=== PATIENT | male | born 1970 | race African-American/Black ===

== ENCOUNTER 2022-01-14 03:20 | Emergency (ER) | payer BC, SELFPAY ==
[2022-01-14 03:22] VITALS: BP 138/90; PULSE 69; RESP 16; TEMP 36.7; O2SAT 97
--- NOTE | 2022-01-14 03:37 | ED.DENTAL ---
HPI - Dental/Oral General Chief complaint: Dental/Oral Stated complaint: dental pain Time Seen by Provider: 01/14/22 03:32 History of Present Illness HPI Narrative: 52-year-old male presents emergency room secondary to dental pain and some swelling to the left jaw. Been having problems with his left upper molar for several weeks. He is finally got an appointment to have it extracted this coming Friday. However now over the last day or so has developed increasing pain and swelling. Denies any chills or fevers. No difficulty in swallowing. Related Data Home Medications Medication Instructions Recorded Confirmed omeprazole 20 mg capsule,delayed cap 01/14/22 release Allergies Allergy/AdvReac Type Severity Reaction Status Date / Time No Known Allergies Allergy Verified 01/14/22 03:31 Review of Systems Review of Systems: CONSTITUTIONAL: Denies fever, chills, or sweats. EYES: Denies visual changes, redness, or discharge. ENT: Denies rhinorrhea, congestion, sore throat, or otalgia. Dental pain as noted in the HPI CARDIOVASCULAR: Denies chest pain, palpitations, or edema. RESPIRATORY: Denies cough or dyspnea. GASTROINTESTINAL: Denies abdominal pain, nausea, vomiting, or diarrhea. GENITOURINARY: Denies dysuria or hematuria. SKIN: Denies rash or itching. MUSCULOSKELETAL: Denies back pain, joint pain, or myalgia. NEUROLOGIC: Denies headache, numbness, or weakness. PSYCHIATRIC: Denies anxiety or depression. ON LICENSE OF [facility] Past Medical History Medical History (Updated 01/14/22 @ 03:39 by Kalpesh Cantu DO) GERD (gastroesophageal reflux disease) Social History Social History (Updated 01/14/22 @ 03:39 by Kalpesh Cantu DO) Living arrangements: with family Exam Narrative: APPEARANCE: Well appearing and appears to be in mild distress secondary pain Head normocephalic and atraumatic. EYES: PERRLA/EOMI, conjunctivae very clear. NOSE: Normal with no drainage EARS:TMS clear Jaleel Barrientos, with good light reflex. THROAT: Pharynx clear, no exudate. Extensive dental caries. His left upper most posterior molar has a crack in it with a dental caries noted. Get some inflammation around the gums. NECK: Supple. Anterior cervical lymphadenopathy RESPIRATORY: Airway patent, respirations nonlabored. Clear to auscultation bilaterally, no rales, rhonchi, wheezing. CARDIOVASCULAR: Regular rate and rhythm without murmurs, rubs, or gallops. ABDOMINAL: Soft, nontender, nondistended, no hepatosplenomegaly Musculoskeletal: Moves all extremities. Strength/ROM intact, No edema, No calf tenderness. NEURO: Alert. Cranial nerves II through XII intact. Normal gait. Good coordination. Nonfocal examination. SKIN:: Warm, dry. Normal Color PSYCHIATRIC: Normal affect/mood, normal interaction Course Vital Signs Vital signs: Vital Signs Temperature 98.0 F 01/14/22 03:22 Pulse Rate 69 01/14/22 03:22 Respiratory Rate 16 01/14/22 03:22 Blood Pressure 138/90 01/14/22 03:22 Pulse Oximetry 97 01/14/22 03:22 Oxygen Delivery Room Air 01/14/22 03:22 Temperature 98.0 F 01/14/22 03:22 Pulse Rate 69 01/14/22 03:22 Respiratory Rate 16 01/14/22 03:22 Blood Pressure 138/90 01/14/22 03:22 Pulse Oximetry 97 01/14/22 03:22 Oxygen Delivery Room Air 01/14/22 03:22 MDM - Dental/Oral MDM Narrative Medical decision making narrative: Presentation is consistent with dental abscess. Patient be put on antibiotics as well as something for pain. Given a shot of Toradol here in the emergency department. He is to follow-up on Friday as already scheduled to have the tooth extracted. Discharge Plan Discharge Clinical Impression: Dental abscess, Dental caries Patient Disposition: Home, Self-Care Condition: Stable Instructions: Antibiotic Form, Dental Abscess (ED) Additional Instructions: Follow-up with your dentist on Friday as already scheduled. Return if worse. Prescriptions: New amoxicillin-pot clav
[2022-01-14] MEDS: KETOROLAC (*BKC) 60 MG/2 ML VIAL IM (03:45)
== END 2022-01-14 04:05 | disposition home or self-care (01) ==
LOC: ANHED 03:39
PROVIDERS: Emergency Provider Emergency Medicine; PCP Internal Medicine Gastroenterology
DX: K04.7 Periapical abscess without sinus (principal); K02.9 Dental caries, unspecified; K21.9 Gastro-esophageal reflux disease without esophagitis
CPT/HCPCS: 96372; 99283; J1885

== ENCOUNTER 2022-05-09 17:43 | Emergency (ER) | payer OTHER, SELFPAY ==
[2022-05-09 18:54] VITALS: BP 115/83; PULSE 62; RESP 14; TEMP 36.7; O2SAT 98
--- NOTE | 2022-05-09 21:19 | ED.DENTAL ---
HPI - Dental/Oral General Chief complaint: Dental/Oral Stated complaint: toothache Time Seen by Provider: 05/09/22 21:09 History of Present Illness HPI Narrative: Patient is a 52-year-old male here for evaluation of left upper dental pain for the past several hours. Patient states that he was biting into a sandwich when his left upper molar cracked. Patient has a history of poor dentition, has seen a dentist for this issue, is scheduled to see an oral surgeon but not till until June. Denies any fevers, chills, nausea, vomiting, facial swelling, drooling. Has not attempted any medication for his pain. Related Data Home Medications Medication Instructions Recorded Confirmed omeprazole 20 mg capsule,delayed cap 01/14/22 release Allergies Allergy/AdvReac Type Severity Reaction Status Date / Time No Known Allergies Allergy Verified 05/09/22 22:24 Review of Systems Review of Systems: Gen: Denies fevers or chills Eyes: Denies eye pain or visual change ENT: Reports dental pain. Respiratory: Denies shortness of breath or cough CV: Denies chest pain or palpitations GI: Denies abdominal pain nausea, emesis or diarrhea : denies burning, urgency, frequency or hematuria Musculoskeletal: Denies back pain or muscle pain Neuro: Denies numbness, tingling, weakness or focal weakness Skin: Denies rash Except as documented, all other systems reviewed and negative PMFSH Past Medical History Medical History GERD (gastroesophageal reflux disease) Exam Narrative: Gen: Alert, oriented, no acute distress Eyes: EOMI, no icterus ENT: Left upper molar is cracked, tender to palpation. No visible periapical abscess. No trismus. No soft tissue swelling noted. Pulm: Respirations even and unlabored, symmetric thorax expansion, no audible stridor or visible cyanosis CV: Regular rate per telemetry GI: No distension, no voluntary/involuntary guarding Neuro: AOx4, moves all extremities without apparent difficulty or weakness, follows commands Skin: No jaundice, no visible bruising, rashes, lesions or wounds on exposed skin Psych: Normal mood/affect, insight/judgement good, adequate fund of knowledge, recent/remote memory intact Course Vital Signs Vital signs: Vital Signs Temperature 98.1 F 05/09/22 18:54 Pulse Rate 62 05/09/22 18:54 Respiratory Rate 14 05/09/22 18:54 Blood Pressure 115/83 05/09/22 18:54 Pulse Oximetry 98 05/09/22 18:54 Oxygen Delivery Room Air 05/09/22 18:54 Temperature 98.1 F 05/09/22 18:54 Pulse Rate 64 05/09/22 22:29 Respiratory Rate 20 05/09/22 22:29 Blood Pressure 122/85 05/09/22 22:29 Pulse Oximetry 98 05/09/22 22:29 Oxygen Delivery Room Air 05/09/22 18:54 MDM - Dental/Oral MDM Narrative Medical decision making narrative: 52-year-old male here for evaluation of dental pain after cracking his tooth on a sandwich earlier today. Patient not immunosuppressed, afebrile and well appearing with patent airway, have low suspicion for deep space infection or any concern for airway compromise. Based on history, physical, and work up. No evidence of tooth fracture, avulsion, or bleeding socket. 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 Offered patient dental nerve block for pain which patient declined. Instructed patient to continue to treat pain with ibuprofen/acetaminophen until they see a dentist. Will Rx antibiotics. Patient discharged home and will follow up with dentist. Discussed return precautions for odontogenic infections and other dental pain emergencies. He has follow up with a dentist at the end of the month. Discharge Plan Discharge Clinical Impression: Toothache Patient Disposition: Home, Self-Care Condition: Stable Instructions: Antibiotic Form, Toothache (ED) Additional Instructions: Your tooth is cracked which is likely causing the pain. You will need t
[2022-05-09] MEDS: ACETAMINOPHEN 325 MG TABLET 650 MG PO (22:02)
[2022-05-09] MEDS: AMOXICILLIN/CLAVULANATE K 875-125 MG TAB 1 TABLET PO (22:03)
[2022-05-09] MEDS: LIDOCAINE HCL 2% JELLY 5 ML TUBE 1 APPLIC MUCOUS MEM (22:05)
[2022-05-09 22:29] VITALS: BP 122/85; PULSE 64; RESP 20; O2SAT 98
== END 2022-05-09 22:29 | disposition home or self-care (01) ==
PROVIDERS: Emergency Provider Emergency Medicine; PCP Internal Medicine Gastroenterology
DX: K08.89 Other specified disorders of teeth and supporting structures (principal); K03.81 Cracked tooth; K21.9 Gastro-esophageal reflux disease without esophagitis
CPT/HCPCS: 99283; A9270

== ENCOUNTER 2022-08-13 21:36 | Emergency (ER) | payer OTHER, SELFPAY ==
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
[2022-08-13 22:03] VITALS: BP 115/76; PULSE 76; RESP 16; TEMP 36.7; O2SAT 99
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
--- NOTE | 2022-08-13 23:10 | PC.NURSE ---
Pt taken into triage 2 and accessed by JUAN Saunders. C-collar taken off and C-spine cleared by him at this time.
[2022-08-14 00:14] VITALS: BP 110/77; PULSE 60; RESP 16; O2SAT 99
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
[2022-08-14] MEDS: methocarbamoL 500 MG TABLET PO (00:39)
[2022-08-14] MEDS: NAPROXEN 500 MG TABLET PO (00:39)
== END 2022-08-14 00:50 | disposition home or self-care (01) ==
LOC: ANHED 08-14 01:03
PROVIDERS: Emergency Provider Nurse Practitioner Family; PCP Internal Medicine Gastroenterology
DX: S13.4XXA Sprain of ligaments of cervical spine, initial encounter (principal); S80.02XA Contusion of left knee, initial encounter; S50.12XA Contusion of left forearm, initial encounter; K21.9 Gastro-esophageal reflux disease without esophagitis; V44.5XXA Car driver injured in collision with heavy transport vehicle or bus in traffic accident, initial encounter
CPT/HCPCS: 72040; 73090; 73562; 99284; A9270

== ENCOUNTER 2023-06-10 11:57 | Emergency (ER) | payer OTHER, SELFPAY ==
[2023-06-10 12:06] VITALS: BP 123/88; PULSE 77; RESP 16; TEMP 37; O2SAT 98
[2023-06-10 12:08] VITALS: BP 123/88; PULSE 77; RESP 16; TEMP 37; O2SAT 98
--- NOTE | 2023-06-10 12:16 | ED.DENTAL ---
HPI - Dental/Oral General Chief complaint: Dental/Oral Stated complaint: TOOTHACHE Time Seen by Provider: 06/10/23 12:21 Mode of arrival: ambulatory Limitations: no limitations History of Present Illness HPI Narrative: 53-year-old male presents with concern for bilateral dental pain. He reports pain hurts worse eats. He denies any fever, trouble swallowing, dental trauma. He reports he has had problems with different T in past. He denies any jaw pain or swelling MD Complaint: tooth pain Related Data Home Medications Medication Instructions Recorded Confirmed omeprazole 20 mg capsule,delayed 20 mg PO DAILY 01/14/22 06/10/23 release gabapentin 100 mg capsule 100 mg PO DIRECTED 06/10/23 06/10/23 Allergies Allergy/AdvReac Type Severity Reaction Status Date / Time No Known Allergies Allergy Verified 06/10/23 12:05 Review of Systems Review of Systems: CONSTITUTIONAL: Denies malaise, chills, sweats, or fever. EYES: Denies visual changes ENT: Denies rhinorrhea, congestion, sinus pain, otalgia or sore throat. Reports bilateral lower dental pain CARDIOVASCULAR: Denies chest pain, palpitations RESPIRATORY: Denies cough or dyspnea. SKIN: Denies rash or itching. MUSCULOSKELETAL: Denies myalgia. NEUROLOGIC: Denies numbness, weakness, or headache. All systems reviewed & are unremarkable except as noted in HPI and below PMFSH Past Medical History Medical History GERD (gastroesophageal reflux disease) Social History Social History Living arrangements: with family Comments At time of signature, agree with nursing past medical, surgical, social and family history. There is no relevant family history pertinent to the presenting complaint Exam Narrative: GENERAL: Well-appearing, well-nourished, and in no acute distress. HEAD: Normocephalic, atraumatic. EYES: PERRLA, sclera clear ENT: Nares clear, turbinates pink, no rhinorrhea or epistaxis. Mucous membranes moist. TM pearly mosqueda with sharp light reflex bilaterally; no tragal tenderness. Oropharynx without erythema or lesions. Tonsils not enlarged and without exudate. Some missing teeth, no broken teeth, some caries. No jaw swelling, abscesses visible or palpable NECK: Supple. No lymphadenopathy. CHEST: No respiratory distress. Speaks in full sentences. HEART: Regular rate and rhythm. SKIN: Warm, dry, no visible rash. NEURO: Alert and oriented x3. PSYCH: Normal mood and affect Course Course Emergency Course: Patient is aware of diagnosis, understands and agrees to treatment plan. Anticipatory guidance given. Patient agrees to follow-up as directed and is aware of reasons to seek care at the emergency department. Portions of this record may have been created with voice recognition software Level of Care: Express Care Visit Vital Signs Vital signs: Vital Signs Temperature 98.6 F 06/10/23 12:06 Pulse Rate 77 06/10/23 12:06 Respiratory Rate 16 06/10/23 12:06 Blood Pressure 123/88 06/10/23 12:06 Pulse Oximetry 98 06/10/23 12:06 Temperature 98.6 F 06/10/23 12:08 Pulse Rate 77 06/10/23 12:08 Respiratory Rate 16 06/10/23 12:08 Blood Pressure 123/88 06/10/23 12:08 Pulse Oximetry 98 06/10/23 12:08 Reviewed. MDM - Dental/Oral MDM Narrative Medical decision making narrative: Patients pain and complaint coupled with physical findings are consistant with dentalgia. There are no focal signs of space occupying lesions that are compromising to the airway; no dysphagia, odynophagia, dysphonia, or dyspnea. No uvular deviation or soft palate edema. Patient is non-toxic appearing. The floor of the mouth is soft with no signs of Rodger's Angina; no induration below mandible, no neck pain. Patient is without trismus or drooling and able to swallow secretions. Patient is felt appropriate for discharge ashleigh
== END 2023-06-10 12:35 | disposition home or self-care (01) ==
PROVIDERS: Emergency Provider Nurse Practitioner; PCP Internal Medicine Gastroenterology
DX: K08.89 Other specified disorders of teeth and supporting structures (principal); K21.9 Gastro-esophageal reflux disease without esophagitis
CPT/HCPCS: 99213; G0463

== ENCOUNTER 2023-06-30 17:08 | Emergency (ER) | payer OTHER, SELFPAY ==
--- NOTE | 2023-06-30 17:12 | ED.EYEPROB ---
HPI - Eye Problem General Chief complaint: Eye Problems Stated complaint: Eye problems Time Seen by Provider: 06/30/23 17:12 Source: patient Mode of arrival: ambulatory Limitations: no limitations History of Present Illness HPI Narrative: Patient is a 53-year-old male who presents with swelling to upper lid. Patient states it has grown in size over the past 3 weeks. Patient has been using warm compresses with no relief. Patient denies any vision changes but does report eyelid edge gets crusty. Denies any fever, chills, congestion, ear pain. Related Data Home Medications Medication Instructions Recorded Confirmed omeprazole 20 mg capsule,delayed 20 mg PO DAILY 01/14/22 06/30/23 release Allergies Allergy/AdvReac Type Severity Reaction Status Date / Time No Known Allergies Allergy Verified 06/30/23 17:14 Review of Systems Review of Systems: All systems reviewed & are unremarkable except as noted in HPI and below Constitutional: Constitutional: Denies body ache(s), Denies fever(s), Denies headache(s), Denies malaise and Denies weakness Eyes: Eyes: Denies blurry vision, Reports eye discharge, Reports irritation, Reports itchy eyes, Denies loss of vision and Reports eye pain ENT: Denies otalgia, Denies headache(s), Denies nasal discharge, Denies sinus pain and Denies sore throat Cardiovascular: Cardiovascular: Denies chest pain, Denies irregular heart rhythm and Denies dyspnea Respiratory: Respiratory: Denies dyspnea Gastrointestinal: Gastrointestinal: Denies abdominal pain, Denies diarrhea, Denies nausea and Denies vomiting Musculoskeletal: Musculoskeletal: Denies back pain, Denies myalgias and Denies arthralgias Integumentary/Breasts: Skin/Breast: Denies pruritus and Denies rash Neurologic: Denies headache(s), Denies loss of vision and Denies weakness Psychiatric: Psychiatric: Reports no additional psychiatric complaints Allergic/Immunologic: Allergic/Immunologic: Reports itchy eyes PMFSH Past Medical History Medical History GERD (gastroesophageal reflux disease) Social History Social History Living arrangements: with family Comments At time of signature, agree with nursing past medical, surgical, social and family history. There is no relevant family history pertinent to the presenting complaint. Exam Const: General: cooperative, healthy appearing, comfortable, no acute distress and well nourished Nutritional Appearance: well nourished Orientation/consciousness: patient oriented x3 Limitations: no limitations HENMT: Head: normal to inspection, normocephalic and atraumatic Ears: external ears normal Face/Nose/Sinus: Normal external nose present, normal facial exam and face symmetric Face and sinus: normal facial exam and face symmetric Mouth: Yes lip normal Eyes: General: appearance normal, both eyes and all related structures Visual Child: normal visual child by confrontation Alignment and Position: alignment normal and position normal Periorbital: periorbital findings normal Eyelids: eyelid abnormality right upper eyelid erythema, lid margins crusty/scaly and swelling Conjunctivae: conjunctivae normal Sclera: sclerae normal Pupils: Equal, round and reactive pupils present EOM: EOMs intact bilaterally Direct Ophthalmoscopy: no photophobia Other: No hyphema, no foreign body under the lids. Neck: Neck: normal visual inspection, full ROM, no lymphadenopathy and no meningeal signs Chest: Chest palpation & inspection: normal inspection of the chest Resp: Effort & Inspection: normal respiratory effort and able to speak in complete sentences Auscultation: clear to auscultation bilaterally Cardio: Rate: regular rate Rhythm: regular rhythm Heart sounds: S1 normal heart sound present and S2 normal heart sound present GI: Inspection: normal to inspection Skin: Gene
[2023-06-30 17:18] VITALS: BP 106/72; PULSE 80; RESP 16; TEMP 37.3; O2SAT 98
== END 2023-06-30 17:42 | disposition home or self-care (01) ==
PROVIDERS: Emergency Provider Nurse Practitioner Family; PCP Internal Medicine Gastroenterology
DX: H01.001 Unspecified blepharitis right upper eyelid (principal); K21.9 Gastro-esophageal reflux disease without esophagitis
CPT/HCPCS: 99213; G0463

== ENCOUNTER 2024-01-12 12:40 | Outpatient (CLI) | payer OTHER, SELFPAY ==
--- NOTE | ~2024-01-12 | MR_ITS ---
EXAMINATION: MR cervical spine wo con DATE: 01/12/2024 13:23 INDICATION: Cervical stenosis of the spine. Neck pain. Back pain. TECHNIQUE: Magnetic resonance imaging (MRI) of the cervical spine was performed without intravenous c ontrast. COMPARISON: Cervical spine radiographs 08/13/2022 FINDINGS: Bone alignment is normal. There is artifact overlying the vertebral bodies and intervertebr al discs from C3 to C7, likely anterior fusion procedures. Other intervertebral disc heights are norm al. The osseous central spinal canal is relatively small. At C3-C4, there is increased T2-weighted si gnal intensity in the spinal cord bilaterally, consistent with myelomalacia. The following disc level s are specifically discussed: C2-C3: The disc does not extend beyond the endplate margin. There is no uncovertebral joint osteoarth ritis. There is mild right and severe left facet joint osteoarthritis. There is no neural foraminal s tenosis. There is mild central canal stenosis. C3-C4: There is mild bilateral uncovertebral joint hypertrophy. There is moderate bilateral facet yuliet nt osteoarthritis. There is moderate bilateral neural foraminal stenosis. There is mild central canal stenosis. C4-C5: There is mild right and moderate left uncovertebral joint hypertrophy. There is mild bilateral facet joint osteoarthritis. There is mild bilateral neural foraminal stenosis. There is mild central canal stenosis. C5-C6: There is moderate right and severe left uncovertebral joint hypertrophy. There is mild bilater al facet joint osteoarthritis. There is mild bilateral neural foraminal stenosis. There is mild centr al canal stenosis. C6-C7: There is severe bilateral uncovertebral joint hypertrophy. There is mild bilateral facet joint osteoarthritis. There is moderate bilateral neural foraminal stenosis. There is mild central canal s tenosis. C7-T1: The disc does not extend beyond the endplate margin. There is no uncovertebral joint osteoarth ritis. There is moderate right and severe left facet joint osteoarthritis. There is mild left neural foraminal stenosis. There is no central canal stenosis. IMPRESSION: 1. Myelomalacia at C3-C4. 2. Surgical changes from C3 to C7, likely anterior fusion procedures. 3. Moderate neural foraminal stenosis at C6-C7. Otherwise mild cervical spondylosis. Reviewed, dictated and finalized at location E. IMPRESSION: 1. Myelomalacia at C3-C4. 2. Surgical changes from C3 to C7, likely anterior fusion procedures. 3. Moderate neural foraminal stenosis at C6-C7. Otherwise mild cervical spondyl osis.
== END 2024-01-12 12:41 | disposition home or self-care (01) ==
PROVIDERS: PCP Internal Medicine Gastroenterology; Visit Provider Neurological Surgery
DX: M48.02 Spinal stenosis, cervical region (principal); G95.89 Other specified diseases of spinal cord
CPT/HCPCS: 72141

== ENCOUNTER 2024-07-13 08:01 | Outpatient (CLI) | payer OTHER, SELFPAY ==
--- NOTE | ~2024-07-13 | US_ITS ---
Limited Abdominal Sonogram: Real-time sonographic imaging of the right upper quadrant was performed. Clinical History: Right upper quadrant pain Findings: The liver appears normal with no evidence of mass lesion or bile duct dilatation. Main por camille vein demonstrates normal direction of flow. The gallbladder is well distended, and appears normal with no evidence of gallstone or wall thickening. The common bile duct measures 4 mm. The visualize d pancreas, aorta, and IVC are unremarkable. Impression: No significant abnormality seen. Reviewed, dictated and finalized at location M. [facility] Impression: No significant abnormality seen.
== END 2024-07-13 08:02 | disposition home or self-care (01) ==
LOC: CHSIMG 08:03
PROVIDERS: PCP Internal Medicine Gastroenterology; Visit Provider Internal Medicine Gastroenterology
DX: R10.11 Right upper quadrant pain (principal)
CPT/HCPCS: 76705

== ENCOUNTER 2025-05-05 19:01 | Emergency (ER) | payer OTHER, SELFPAY ==
--- NOTE | ~2025-05-05 | CT_ITS ---
EXAMINATION: CT abdomen pelvis wo con DATE: 05/05/2025 20:24 INDICATION: Right flank pain TECHNIQUE: Computed tomography (CT) of the abdomen and pelvis was performed without intravenous contrast. Automated exposure control and iterative reconstruction technique were employed. The dose-length product was 621.12 mGy-cm. COMPARISON: Right upper quadrant ultrasound dated 07/13/2024 FINDINGS: Mild basilar and dependent atelectasis in the bilateral lower lungs. Heart size is normal. No pericardial or pleural effusion. There punctate calcifications at the periphery of a likely benign lenticular fluid attenuation lesion which appears to contain a small focus of fat underlying the right hemidiaphragm along the periphery of the dome of the liver, unclear whether subcapsular or extracapsular. The lesion measures 3.7 x 3.2 cm in medial to lateral and AP extent and measures up to 7 mm in maximal thickness. Gallbladder, spleen, bilateral adrenal glands and left kidney are normal. Small region of cortical scarring at the upper pole of the right kidney. There are subtle decreased density at the tail of the pancreas minimal surrounding stranding raising suspicion for mild acute interstitial pancreatitis. Bowels including the appendix are normal. Bladder is normal. No free intraperitoneal gas or fluid. No pathologically enlarged abdominal or pelvic lymphadenopathy. Chronic appearing mild likely physiologic anterior wedging at T10-L1. Mild thoracic and lumbar spondylosis. Mild to moderate left and moderate right hip osteoarthritis. IMPRESSION: 1. Subtle decreased density of the tail the pancreas with minimal surrounding stranding suspicious for acute pancreatitis. Correlate with lipase levels. In the absence of acute pancreatitis would recommend further evaluation with pre and postcontrast MRI for further assessment of the region of decreased density. Reviewed, dictated and finalized at location A. IMPRESSION: 1. Subtle decreased density of the tail the pancreas with minimal surrounding s tranding suspicious for acute pancreatitis. Correlate with lipase levels. In th e absence of acute pancreatitis would recommend further evaluation with pre and postcontrast MRI for further assessment of the region of decreased density.
[2025-05-05 19:02] VITALS: BP 130/99; PULSE 76; RESP 18; TEMP 36.4; O2SAT 100
[2025-05-05] MEDS: KETOROLAC 30 MG/ML VIAL (*BKC) IV PUSH (19:54)
[2025-05-05] MEDS: ONDANSETRON INJ 4 MG/2 ML VIAL IV PUSH (19:54)
[2025-05-05] MEDS: SODIUM CHLORIDE 0.9% IV 1,000 ML 999 ML IV CONT (19:54)
[2025-05-05 20:00] LABS: Hematocrit 54.2 % (40.0-54.0); Hemoglobin 16.6 g/dL (14.0-18.0); Immature Granulocyte Percent A 0.2 % (0.0-0.0); Lymphocytes Absolute Auto 1.31 K/mm3 (1.10-4.50); Mean Corpuscular HGB Conc 30.6 g/dL (32-36); Mean Corpuscular Hemoglobin 28.5 pg (27.0-31.0); Mean Corpuscular Volume 93.1 fL (78.0-102.0); Nucleated Red Blood Cells Absolute Auto 0.00 K/mm3 (0.00-0.00); Nucleated Red Blood Cells Perc 0.0 % (0-0.0); Platelet Count Result 258 K/mm3 (150-420); Red Blood Count 5.82 M/mm3 (4.70-6.10); White Blood Count 6.0 K/mm3 (4.8-10.8)
[2025-05-05 20:23] VITALS: BP 107/57; PULSE 67; RESP 20; O2SAT 97
[2025-05-05 20:25] LABS: Alanine Aminotransferase 19 U/L (6-50); Albumin Level 4.0 g/dL (3.5-5.1); Alkaline Phosphatase 52 U/L (38-126); Anion Gap 16 mmol/L (4-12); Aspartate Amino Transferase 32 U/L (17-59); Bilirubin,Total 0.9 mg/dL (0.2-1.3); Blood Urea Nitrogen 7 mg/dL (9-20); Calcium 9.7 mg/dL (8.4-10.2); Carbon Dioxide 16 mmol/L (22-30); Chloride 104 mmol/L (98-107); Estimated CRCL calculation 86 ml/min; Estimated Glomerular Filt Rate > 60; Glucose 97 mg/dL (65-110); Osmolality Calculated 280 mOsm/kg (285-295); Potassium 4.2 mmol/L (3.4-5.0); Sodium 136 mmol/L (137-145); Total Protein 9.1 g/dL (6.3-8.2)
[2025-05-05 20:46] LABS: Add Urine Microscopic? NO; Appearance Urine Clear (Clear); Glucose Urine UA Negative (Negative); Leukocyte Esterase Ur Negative LEU/UL (Negative); Nitrate Urine Negative (Negative); Specific Grav Ur 1.010 (1.010-1.020)
[2025-05-05 21:28] LABS: Lipase 42 U/L (23-300)
--- NOTE | 2025-05-05 21:37 | ED.BACK ---
HPI - Back Pain/Injury General Chief Complaint: Back Pain/Injury Stated Complaint: rt. side flank pain going to back Time Seen by Provider: 05/05/25 19:19 Source: patient and family Mode of arrival: ambulatory Limitations: no limitations History of Present Illness HPI Narrative: this is a 55-year-old male with no significant past medical history presents with right flank pain with no radiation of his pain no known injuries no sciatic arm radiculopathy going down his leg no saddle paresthesias no dysuria or hematuria no diarrhea constipation there is no nausea or vomiting. Patient denies any chest pain or shortness of breath. MD elicited complaint: other ( right flank pain) Onset (ago): day(s) Timing: constant Severity: moderate Pain scale (0-10): 6 Related Data Home Medications ?Medication ?Instructions ?Recorded ?Confirmed ?Last Taken ?Type omeprazole 20 mg capsule,delayed 20 mg PO DAILY 01/14/22 06/30/23 01/13/22 History release Allergies Allergy/AdvReac Type Severity Reaction Status Date / Time No Known Allergies Allergy Verified 05/05/25 19:16 Review of Systems Review of Systems: All systems reviewed & are unremarkable except as noted in HPI and below PMFSH Past Medical History Medical History GERD (gastroesophageal reflux disease) Social History Social History Living arrangements: with family Exam Const: General: healthy appearing, no acute distress and alert Nutritional Appearance: well nourished Orientation/consciousness: patient oriented x3 Limitations: no limitations Neck: Neck: normal visual inspection, no lymphadenopathy and no meningeal signs Chest: Chest palpation & inspection: normal inspection of the chest Resp: Effort & Inspection: normal respiratory effort Auscultation: clear to auscultation bilaterally Cardio: Rate: regular rate Rhythm: regular rhythm GI: Auscultation: normal bowel sounds Back/Spine/Pelvis: Back: CVA tenderness Other: Right flank tenderness Skin: General skin exam: normal color Rashes: no rashes Course Course Emergency Course: medical decision making narrative: The patient was evaluated by myself in the emergency department. History is obtained from the patient who is an independent historian and physical exam performed and witnessed by nurse Galdamez. External records were reviewed at this time. Patient had blood work that showed no acute abnormalities lipase was negative CT scan of the abdomen pelvis without contrast showed no acute stones no intra-abdominal abnormality did show an area on the tail the pancreas that radiology advised to correlate with lipase, lipase was negative. Patient had a urinalysis with some no abnormalities. Medications, patient received IV Toradol and IV fluids and repeat assessment, CT scan radiology report indicates to perform an outpatient MRI. Doing well on repeat exam with no acute distress Symptoms improved since arrival to the ED day. Repeat vitals are stable. Patient agrees and discussion with discussion and after shared medical decision-making and agrees with discharge. All questions answered to the patient's satisfaction. Advised follow-up in 3 to 5 days with his primary care physician. Patient provided strict return precautions and return to the ED if any worsening symptoms. Vital Signs Vital signs: Vital Signs Temperature 36.4 C 05/05/25 19:02 Pulse Rate 76 05/05/25 19:02 Respiratory Rate 18 05/05/25 19:02 Blood Pressure 130/99 H 05/05/25 19:02 Pulse Oximetry 100 05/05/25 19:02 Oxygen Delivery Room Air 05/05/25 19:02 Temperature 36.4 C 05/05/25 19:02 Pulse Rate 67 05/05/25 20:23 Respiratory Rate 20 05/05/25 20:23 Blood Pressure 107/57 L 05/05/25 20:23 Pulse Oximetry 97 05/05/25 20:23 Oxygen Delivery Room Air 05/05/25 20:23 MDM - Back Pain/Injury Lab Data 05/05/25 19:57 05/05/25 19:57 Labs: Lab Results 05/05/25 05/05/25 05/05/25 Range/Units 19:57 20:39 21:18 WBC 6.0 (4.8-10.8) K/mm3 RBC 5.82 (4.70-6.10) M/mm3 Hgb 16.6 (14.0-18.0) g/dL Hct 54.2 H (40.0-54.0) % MCV 93.1 (78.0-102.0) fL MCH 28.5 (27.0-31.0) pg MCHC 30.6 L (32-36) g/dL RDW 13.7 (11.6-14.4) % Plt Count 258 (150-420) K/mm3 MPV 9.2 (8.7-11.0) fl Immature Gran % (Auto) 0.2 H (0.0-0.0) % Neut % (Auto) 65.2 (50.0-70.0) % Lymph % (Auto) 21.9 (18.0-42.0) % Stephens % (Auto) 10.4 (2.0-11.0) % Eos % (Auto) 2.0 (1.0-6.0) % Baso % (Auto) 0.3 (0.0-1.0) % Lymph # (Auto) 1.31 (1.10-4.50) K/mm3 Stephens # (Auto) 0.62 (0.10-0.90) K/mm3 Eos # (Auto) 0.12 (0.02-0.50) K/mm3 Baso # (Auto) 0.02 (0.00-0.10) K/mm3 Abs Immat Gran (auto) 0.01 H (0.00-0.00) K/mm3 Absolute Neuts (auto) 3.90 (1.70-7.20) K/mm3 Absolute Nucleated RBC 0.00 (0.00-0.00) K/mm3 Nucleated RBC % 0.0 (0-0.0) % Sodium 136 L (137-145) mmol/L Potassium 4.2 (3.4-5.0) mmol/L Chloride 104 (98-107) mmol/L Carbon Dioxide 16 L (22-30) mmol/L Anion Gap 16 H (4-12) mmol/L BUN 7 L (9-20) mg/dL Creatinine 1.10 (0.7-1.3) mg/dL Estim Creat Clear Calc 86 ml/min Estimated GFR > 60 (59 - ) Glucose 97 (65-110) mg/dL Calculated Osmolality 280 L (285-295) mOsm/kg Lactic Acid 2.5 H (0.4-2.0) mmol/L Calcium 9.7 (8.4-10.2) mg/dL Total Bilirubin 0.9 (0.2-1.3) mg/dL AST 32 (17-59) U/L ALT 19 (6-50) U/L Alkaline Phosphatase 52 (38-126) U/L Total Protein 9.1 H (6.3-8.2) g/dL Albumin 4.0 (3.5-5.1) g/dL Lipase 42 (23-300) U/L Urine Color Light yellow (Yellow) Urine Appearance Clear (Clear) Urine pH 5.5 (5.0-8.0) Ur Specific Witherbee 1.010 (1.010-1.020) Urine Protein Negative (Negative) Urine Glucose (UA) Negative (Negative) Urine Ketones Trace H (Negative) Ur Blood (Man) Negative (Negative) Urine Nitrate Negative (Negative) Urine Bilirubin Negative (Negative) Urine Urobilinogen 0.2 (0.2-1.0) mg/dL Leukocyte Esterase Rfl Negative (Negative) DANUTA/UL Critical Care Time Critical Care Time Critical Care Time: No Discharge Plan Discharge Clinical Impression: Back pain Qualifiers: Back pain location: low back pain Chronicity: acute Back pain laterality: right Sciatica presence: without sciatica Qualified Code(s): M54.50 - Low back pain, unspecified Patient Disposition: Home Condition: Stable Instructions: Antibiotic Form, Back Pain (ED) Additional Instructions: Advised patient follow with primary care physician within 3 to 5 days further evaluation treatment, take medication as prescribed. Patient Language: [place] Citizen Prescriptions: New tramadol 50 mg tablet 50 mg PO Q6H PRN (Reason: pain) Qty: 20 0RF No Action erythromycin 5 mg/gram (0.5 %) ointment 0.5 inch RIGHT EYE QID 14 Days Qty: 3.5 0RF omeprazole 20 mg capsule,delayed release(DR/EC) 20 mg PO DAILY Follow-up/Referrals: Rolando,MD Marquise [Primary Care Provider] Time of Disposition: 21:43
--- NOTE | 2025-05-05 21:39 | PC.NURSE ---
Pt resting and reports feeling much better. Pt informed on POC for d/c home and f/u w/ his FMD.
[2025-05-05 21:49] VITALS: BP 106/85; PULSE 74; RESP 18; TEMP 36.5; O2SAT 94
== END 2025-05-05 21:53 | disposition home or self-care (01) ==
PROVIDERS: Emergency Provider Emergency Medicine; PCP Internal Medicine
DX: M54.50 Low back pain, unspecified (principal)
CPT/HCPCS: 36415; 74176; 80053; 81003; 83605; 83690; 85025; 96361; 96374; 96375; 99284; J1885; J2405; J7030

== ENCOUNTER 2025-05-12 07:59 | Outpatient (CLI) | payer OTHER, SELFPAY ==
--- NOTE | ~2025-05-12 | US_ITS ---
Examination: US abdomen complete Clinical History: ABDOMINAL PAIN, UNSPECIFIED ABDOMINAL LOCATION . Comparison: CT abdomen and pelvis 05/05/2025 Technique: Complete abdominal sonography Findings: Liver: Normal size. Normal echotexture. No intrahepatic biliary ductal dilatation. Normal hepatopedal flow main portal vein. Hypoechoic focus along dome with speckled calcifications as on CT. Small hyperechoic focus right lobe consistent with hemangioma. Common duct: Normal caliber, 3 mm. Gallbladder: No stones. No wall thickening. No pericholecystic fluid. Spleen: Unremarkable. Pancreas: Visualized portions unremarkable but largely obscured by bowel gas. 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 Aorta: No aneurysmal dilatation. Retrohepatic IVC: Unremarkable. IMPRESSION: 1. No acute abnormality. 2. Findings as above. Attention on future scans. Reviewed, dictated and finalized at location R.
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
--- OUTSIDE RECORDS SUMMARY | 2025-05-12 08:05 | XMS_ITS | Data Portability ---
Author Organization [facility] [employer], Main Office Address [address] [place] [address] Assessment No assessment recorded. Plan of Treatment Reminders Order Date Submit Date Provider Last Modified By Organization Details Last Modified Time Details Appointments None recorded. Lab H pylori Ag, qual immunoassa y, stool 2024 025 [facility] (Lab), [address] [place], [address], 5 08:06:32 Referral None recorded. Procedures upper endoscopy procedure (EGD) (PROC) 2023 024 [facility] (Pre-Screen), [address] [place], [address], 4 13:30:01 Surgeries None recorded. Imaging None recorded. Medication Orders None recorded. Patient TargetsNo targets recorded. Patient Instructions Encounter Date Encounter Id Patient Instructions Last Modified By Organization Details Last Modified Time 10/15/2023 [id number] REFLUX DIET [email or web address] Not available 0 10/15/2023 15:40:36 PT WITH GERD SX . NEED TO R/O PUD/ H. PYLORI . RECOMMEND AN EGD . Risks benefits and complications were explained to the pt. ( BLEEDING PERFORATION , INFECTION , ). PT VERBALIZES UNDERSTANDING AND IS WILLING TO PROCEDE . [email or web address] Not available 10/15/2023 15:40:55 12/15/2024 [id number] STOP PPI /FAMOTIDINE X 2 WEEKS . [email or web address] Not available 12/15/2024 15:27:19 PT WITH HX/O H. PYLORI INFECTION . S/P TREATMENT . RECOMMEND STOOL AG TEST . STOP STOMACH MEDS X 2 WEEKS . SX OF SORE THROAT /COUGHING . COLUD BE ALLERGY . TRY ZYRTEC . F/U IN 4 WEEKS . [email or web address] Not available 12/15/2024 15:29:17 Reason for Referral None Reported. Results Created Date Observation Date Name Description Value Unit Range Abnormal Flag Note LastModifiedBy Organization Detail LastModifiedTime Result Notes None recorded. Problems Name Problem SNOMED Code Status Onset Date Resolution Date Notes Provider Name and Address Organization Details Recorded Time Gastroesophag eal reflux disease without esophagitis 235000034 Active 2023 Sara Suresh MD [address] [address], [place], [address] , [employer] 4 14:09:50 Helicobacter pylori gastrointesti nal tract infection 089101840 Active 2023 GEOFFREY aBrker [facility], [employer] 4 09:37:32 Notes:Some problems listed i n Document: #[id number] could not be added to this patient's chart. Please review this document and add these problems to the patient's chart manually as needed. Problem Notes None recorded. Medical Equipment None Reported. Allergies No known drug allergies Medications Name Sig Start Date Stop Date Status Note LastModified by Organization Details LastModified Time cyclobenzap rine 10 mg tablet TAKE 1 TABLET AT BEDTIME NEEDED FOR SPASMS 12/15 completed Not Available Not Available Not Available promethazin e-DM 6.25 mg-15 mg/5 mL oral syrup TAKE 5 ML BY MOUTH FOUR TIMES DAILY 12/15 completed Not Available Not Available Not Available tizanidine 2 mg tablet TAKE 1 TO 2 TABLETS BY MOUTH THREE TIMES DAILY NEEDED 09/17 completed Not Available Not Available Not Available azithromyci n 250 mg tablet 09/17 completed Not Available Not Available Not Available clarithromy jose alberto 500 mg tablet TAKE 1 TABLET BY MOUTH TWICE DAILY FOR 14 DAYS 12/15 completed Not Available Not Available Not Available hydrocodone 5 mg-acetamin ophen 325 mg tablet TAKE 1 TO 2 TABLETS BY MOUTH EVERY 6 HOURS NEEDED FOR PAIN 02/21 /2024 completed Not Available Not Available Not Available meloxicam 15 mg tablet TAKE 1 TABLET BY MOUTH EVERY DAY 09/17 completed Not Available Not Available Not Available famotidine 40 mg tablet TAKE 1 TABLET BY MOUTH EVERY DAY IN THE EVENING active Not Available Not Available No t Available ciprofloxac in 500 mg tablet TAKE 1 TABLET BY MOUTH TWICE DAILY 09/17 completed Not Available Not Available Not Available omeprazole 40 mg capsule,del ayed release TAKE 1 CAPSULE BY MOUTH EVERY DAY BEFORE A MEAL active Not Available Not Available No t Available doxycycline monohydrate 100 mg tablet TAKE 1 TABLET BY MOUTH TWICE DAILY FOR 10 DAYS 09/17 completed Not Available Not Available Not Available amoxicillin 500 mg tablet TAKE 2 TABLET BY MOUTH TWICE DAILY FOR 14 DAYS 12/15 completed Not Available Not Available Not Available meloxicam 7.5 mg tablet TAKE 1 TABLET BY MOUTH TWICE DAILY NEEDED FOR PAIN 09/17 completed Not Available Not Available Not Available pantoprazol e 40 mg tablet,jatin yed release TAKE 1 TABLET BY MOUTH TWICE DAILY FOR 14 DAYS 12/15 completed Not Available Not Available Not Available erythromyci n 5 mg/gram (0.5 %) eye ointment APPLY 1/2 INCH IN RIGHT EYE FOUR TIMES DAILY FOR 14 DAYS 09/17 completed Not Available Not Available Not Available omeprazole 20 mg capsule,del ayed release TAKE 1 CAPSULE BY MOUTH EVERY DAY BEFORE MEALS 12/15 completed Not Available Not Available Not Available gabapentin 100 mg capsule TAKE 1 CAPSULE BY MOUTH THREE TIMES DAILY 09/17 completed Not Available Not Available Not Available diazepam 10 mg tablet TAKE 1 TABLET BY MOUTH 30 MINUTES PRIOR TO TEST AND 1 TABLET AFTER NEEDED 12/15 completed Not Available Not Available Not Available methylpredn isolone 4 mg tablets in a dose pack FOLLOW PACKAGE DIRECTION S 12/15 completed Not Available Not Available Not Available naproxen 500 mg tablet TAKE 1 TABLET BY MOUTH TWICE A DAY NEEDED FOR PAIN FOR 5 DAYS active Not Available Not Available No t Available diazepam 5 mg tablet TAKE 1 TABLET BY MOUTH 1 TIME 30 MINUTES BEFORE MRI FOR 1 DOSE 12/15 completed Not Available Not Available Not Available amoxicillin 875 mg-potassiu m clavulanate 125 mg tablet TAKE 1 TABLET BY MOUTH TWICE A DAY FOR 7 DAYS 12/15 completed Not Available Not Available Not Available chlorhexidi ne gluconate 0.12 % mouthwash SWISH AND SPIT 15 ML TWICE A DAY FOR 1 WEEK active Not Available Not Available No t Available Vitals Date Recorded Body height Body mass index (BMI) Body weight Heart rate Oxygen saturation Oxygen saturation in Arterial blood by Pulse oximetry Systolic And Diastolic Provider Name and Address Organization Details Last Updated DateTime 4 182.88 cm 29.4 kg/m2 31600.5 4 g 86 /min 95 % 95 % 102/76 mm[Hg] GEOFFREY Barker [facility] [email or web address] [facility] 4 14:06:13 Date Recorded Body height Body mass index (BMI) Body weight Heart rate Oxygen saturation Oxygen saturation in Arterial blood by Pulse oximetry Systolic And Diastolic Provider Name and Address Organization Details Last Updated DateTime 5 182.88 cm 32.7 kg/m2 463609. 76 g 80 /min 97 % 97 % 118/86 mm[Hg] GEOFFREY Barker [facility] [email or web address] [facility] 5 14:50:44 Social History Question Answer Notes LastModified by [employer] Details LastModified Time Tobacco Smoking Status Never Smoker GEOFFREY Barker [facility] [email or web address] [facility] 09/17/2023 10:44:09 Which Illicit Or Recreational Drugs Have You Used? Marijuana Information not available 09/17/2023 Sex: Unknown Functional Status Question Answer Note LastModified by [employer] Details LastModified Time Do you use any illicit or recreational drugs? Yes Information not available 09/17/2023 What is your level of alcohol consumption? None Information not available 09/17/2023 Mental Status None recorded. Family History Relationship Description Onset Age of this Age Resolved Age Notes LastModified by Organization Details LastModified Time Father No current problems or disability Not available 09/17 10:43:49 Mother No current problems or disability Not available 09/17 10:43:49 Medical History Condition Response GERD/NAUSEA Y Past Encounters Encounter ID Performer Location Encounter Start Date Encounter Closed Date Diagnosis/Indication Diagnosis SNOMED-CT Code Diagnosis ICD10 Code Diagnosis IMO Codes Diagnosis Note [id number] Sara Suresh MD [facility] General Surgery [address] [facility] [address] [place] [address] 10/15/2023 14:03:02 10/15/2023 14:46:05 Gastroesophageal reflux disease without esophagitis 292522933 K21.9 [id number] Sara Suresh MD [facility] General Surgery [address] [facility] [address] [place] [address] 12/15/2024 14:46:25 12/15/2024 15:23:07 Gastroesophageal reflux disease without esophagitis 865939239 K21.9 Helicobact er pylori gastrointestinal tract infection 465236449 B96.81 CHECK STOOL AG TEST. Health Concerns Section Related Observation LastModified by Organization Detai ls LastModified Time None Recorded Concern Status LastModified by Organization Details LastModified Time None Recorded Advance Directives Directive None Recorded Payers Insurance Date Sequence Insurance Name Policy Number Policy Lebron Covered Member ID Lebron Member ID Guarantor Name 03/22/2025 1 [facility] - DOS ON OR AFTER 21 (MEDICAID REPLACEMENT - HMO) Nima Escobar [id number] Nima Escobar Notes Date Note Type Note Provider Name and Address Organization Details Recorded Time 10/15/2023 text/html ROS as noted in the HPI PT WAS SEEN IN THE OFFICE TODAY FOR GERD . PT DENIES ABD PAIN /N/V. PT ADMITS TO PYROSIS. HE DOES NOT ADHERE TO A REFLUX DIET . PT IS TAKING OMEPRAZOLE 40 MG / PEPCID OTC. PT IS REPORTING SX W/ W/O FOOD. Sara Suresh MD [address] [address], [place], [address], [facility] 10/15/2023 15:41:14 12/15/2024 text/html ROS as noted in the HPI NIMA WAS SEEN IN THE OFFICE TODAY FOR A F/U. PT IS S/P EGD AND WAS POSITIVE FOR H. PYLORI. PT IS S/P THERAPY . THE CONFIRMATORY TEST WAS NOT DONE AFTER RX . TODAY PT IS C/O THROAT PAIN / SORE JAW/ COUGHING . PT IS SMOKING MARIJUANA . Sara Suresh MD [address], [facility] [address], [place], [address], [place] [facility] 12/15/2024 15:29:33
== END 2025-05-12 08:00 | disposition home or self-care (01) ==
LOC: CHSIMG 08:01
PROVIDERS: PCP Internal Medicine; Visit Provider Internal Medicine
DX: R10.9 Unspecified abdominal pain (principal)
CPT/HCPCS: 76700

== ENCOUNTER 2025-05-13 17:52 | Outpatient (CLI) | payer OTHER, SELFPAY ==
[2025-05-14 13:51] LABS: HIV 1 P24 AG Negative (Negative); HIV 1/2 AB Negative (Negative)
[2025-05-16 11:47] LABS: HAV RESULT Negative (Negative); Hepatitis A Antibody IgM Negative; Hepatitis B Core IgM Result Negative (Negative); Hepatitis B Surface Antigen Negative; Hepatitis B Surface Antigen Negative (Negative)
[2025-05-16 15:09] LABS: Albumin 3.8 g/dL (2.9-4.4); Alpha-1-Globulin 0.3 g/dL (0.0-0.4); Alpha-2-Globulin 0.8 g/dL (0.4-1.0); Gamma Globulin 1.1 g/dL (0.4-1.8)
[2025-05-17 14:08] LABS: Albumin, U 61.7 % (.); Alpha-1-Globulin, U 1.3 % (.); Alpha-2-Globulin, U 12.8 % (.); Beta Globulin, U 14.3 % (.); Gamma Globulin, U 9.8 % (.); Immunoglobulin A, Qn 130 mg/dL (90-386); Immunoglobulin G, Qn 1119 mg/dL (603-1613); Immunoglobulin M, Qn 32 mg/dL (20-172)
== END 2025-05-13 17:53 | disposition home or self-care (01) ==
LOC: CHSLAB 17:54
PROVIDERS: PCP Internal Medicine; Visit Provider Internal Medicine
DX: E88.09 Other disorders of plasma-protein metabolism, not elsewhere classified (principal)
CPT/HCPCS: 36415; 80074; 82784; 84155; 84156; 84165; 84166; 86334; 87806